=== PATIENT | male | born 1990 | race Caucasian/White ===

== ENCOUNTER 2016-09-11 20:22 | Emergency (ER) | payer OTHER ==
[~2016-09-11] VITALS: Ht 170.1 cm; Wt 54.4 kg
[~2016-09-11 20:22] MED LIST: MOTRIN800 MG PO; ROBAXIN750 MG PO
[2016-09-11 21:31] LABS: BASO % 0.5 % (0.0-1.0); EOS # 0.5 10*3/uL (0.0-0.4); EOS % 5.6 % (1.0-4.0); HEMATOCRIT 41.7 % (42.0-52.0); HEMOGLOBIN 14.2 g/dl (14.0-18.0); LYMPH # 2.8 10*3/uL (1.3-4.4); LYMPH % 31.2 % (27.0-41.0); MEAN CORPUSCULAR HGB 27.6 pg (27.0-31.0); MEAN CORPUSCULAR HGB CONC 34.1 g/dl (33.0-37.0); MEAN PLATELET VOLUME 11.2 fl (9.6-12.3); MONO # 0.5 10*3/uL (0.1-1.0); NEUT % 56.6 % (47.0-73.0); PLATELET COUNT AUTOMATED 200 10*3/uL (130-400); RED BLOOD COUNT 5.15 10*6/uL (4.50-5.90); RED CELL DISTRI WIDTH 12.2 % (0-14.5); WHITE BLOOD COUNT 8.9 10*3/uL (4.8-10.8)
[2016-09-11 21:47] LABS: ALBUMIN 4.2 gm/dl (3.1-4.5); ALKALINE PHOSPHATASE 69 U/L (45-117); BILIRUBIN, TOTAL 0.6 mg/dl (0.2-1.0); BUN 9 mg/dl (7-24); CARBON DIOXIDE 29 mmol/L (21-32); CHLORIDE 105 mmol/L (98-107); EST GLOM FILT AFRICAN AMERICAN > 60 ml/min; GLUCOSE 116 mg/dL (65-99); POTASSIUM 3.8 mmol/L (3.5-5.1); SGOT/AST 13 IU/L (3-35); SGPT/ALT 18 U/L (12-78); SODIUM 142 mmol/L (136-145); TOTAL PROTEIN 7.4 gm/dL (6.4-8.2)
[2016-09-11 23:00] LABS: BILIRUBIN NEGATIVE (NEGATIVE); BLOOD NEGATIVE (NEGATIVE); CLARITY CLEAR (CLEAR); COLOR YELLOW (YELLOW); GLUCOSE NEGATIVE (NEGATIVE); KETONE NEGATIVE (NEGATIVE); LEUKO ESTERASE NEGATIVE (NEGATIVE); NITRITE NEGATIVE (NEGATIVE); PROTEIN NEGATIVE (NEGATIVE); UROBILINOGEN 0.2 E.U./dl (0.2-1.0)
[2016-09-11 23:09] LABS: URINE AMPHETAMINES < 1000 (1000ng/ml); URINE BARBITURATES < 200 (200ng/ml); URINE COCAINE < 300 (300ng/ml); URINE REFLEX COMMENT NO (NO)
== END 2016-09-12 00:17 | disposition home or self-care (01) ==
LOC: ED 20:22
PROVIDERS: Nurse Practitioner Family
DX: F11.10 Opioid abuse, uncomplicated (principal); F19.230 Other psychoactive substance dependence with withdrawal, uncomplicated; R10.84 Generalized abdominal pain; F17.200 Nicotine dependence, unspecified, uncomplicated; F14.10 Cocaine abuse, uncomplicated; G25.81 Restless legs syndrome; Z98.890 Other specified postprocedural states

== ENCOUNTER 2017-04-27 16:52 | Inpatient (IN) | payer OTHER ==
[~2017-04-27] VITALS: Ht 172.7 cm; Wt 62.2 kg
[2017-04-27 17:29] VITALS: BP 118/82
[2017-04-27 17:49] LABS: BASO % 0.2 % (0.0-1.0); EOS % 0.3 % (1.0-4.0); HEMATOCRIT 46.1 % (42.0-52.0); HEMOGLOBIN 15.7 g/dl (14.0-18.0); LYMPH # 1.4 10*3/uL (1.3-4.4); LYMPH % 13.5 % (27.0-41.0); MEAN CELL VOLUME 81.2 fl (80.0-94.0); MEAN CORPUSCULAR HGB 27.6 pg (27.0-31.0); MEAN CORPUSCULAR HGB CONC 34.1 g/dl (33.0-37.0); MEAN PLATELET VOLUME 11.1 fl (9.6-12.3); MONO # 0.3 10*3/uL (0.1-1.0); MONO % 3.4 % (3.0-9.0); NEUT # 8.2 10*3/uL (2.3-7.9); NEUT % 82.4 % (47.0-73.0); PLATELET COUNT AUTOMATED 250 10*3/uL (130-400); RED BLOOD COUNT 5.68 10*6/uL (4.50-5.90); RED CELL DISTRI WIDTH 12.9 % (0-14.5)
[2017-04-27 17:57] LABS: ACT PARTIAL THROMBO TIME 23.3 SECONDS (20.8-31.5); INTERNATIONAL NORM RATIO 1.1 (2.0-3.5)
[2017-04-27 18:02] LABS: ALBUMIN 4.4 gm/dl (3.1-4.5); ALKALINE PHOSPHATASE 77 U/L (45-117); BUN 14 mg/dl (7-24); CHLORIDE 103 mmol/L (98-107); CREATININE 1.09 mg/dL (0.70-1.30); POTASSIUM 4.1 mmol/L (3.5-5.1); SGOT/AST 16 IU/L (3-35); SGPT/ALT 19 U/L (12-78); SODIUM 137 mmol/L (136-145); TOTAL PROTEIN 8.2 gm/dL (6.4-8.2)
[2017-04-27 18:03] LABS: ACETAMINOPHEN (TYLENOL) < 2.0 ug/ml (10-30); ETHYL ALCOHOL < 3.0 mg/dl (<3)
[2017-04-27 19:15] VITALS: BP 130/80
[2017-04-27 20:00] VITALS: BP 130/80
[2017-04-28] VITALS: BP 90/42
[2017-04-28 03:38] VITALS: BP 99/52
[2017-04-28 04:05] LABS: BILIRUBIN NEGATIVE (NEGATIVE); BLOOD NEGATIVE (NEGATIVE); CLARITY SL CLOUDY (CLEAR); COLOR YELLOW (YELLOW); GLUCOSE NEGATIVE (NEGATIVE); KETONE NEGATIVE (NEGATIVE); LEUKO ESTERASE NEGATIVE (NEGATIVE); NITRITE NEGATIVE (NEGATIVE); PH 6.5 (5.0-9.0); UROBILINOGEN 0.2 E.U./dl (0.2-1.0)
[2017-04-28 04:20] LABS: MUCOUS TRACE
[2017-04-28 04:29] LABS: URINE AMPHETAMINES < 1000 (1000ng/ml); URINE BARBITURATES < 200 (200ng/ml); URINE BENZODIAZEPINES < 200 (200ng/ml); URINE CANNABINOIDS (THC) < 50 (50ng/ml); URINE COCAINE < 300 (300ng/ml); URINE METHADONE < 300 (300ng/ml); URINE OPIATES > 300 (300ng/ml); URINE PHENCYCLIDINE < 25 (25ng/ml)
[2017-04-28 08:00] VITALS: BP 113/67
[2017-04-28 12:00] VITALS: BP 119/57
[2017-04-28 16:00] VITALS: BP 112/55
[2017-04-28 20:00] VITALS: BP 118/66
[2017-04-29] VITALS: BP 110/61
[2017-04-29 08:00] VITALS: BP 111/60
[2017-04-29 12:00] VITALS: BP 114/66
[2017-04-29 16:00] VITALS: BP 103/55
[2017-04-29 20:07] VITALS: BP 111/58
[2017-04-30] VITALS: BP 119/53
[2017-04-30 05:23] LABS: BASO % 0.5 % (0.0-1.0); EOS # 0.2 10*3/uL (0.0-0.4); EOS % 3.6 % (1.0-4.0); HEMATOCRIT 40.9 % (42.0-52.0); HEMOGLOBIN 13.6 g/dl (14.0-18.0); LYMPH # 2.4 10*3/uL (1.3-4.4); LYMPH % 42.7 % (27.0-41.0); MEAN CELL VOLUME 83.8 fl (80.0-94.0); MEAN CORPUSCULAR HGB 27.9 pg (27.0-31.0); MEAN CORPUSCULAR HGB CONC 33.3 g/dl (33.0-37.0); MEAN PLATELET VOLUME 11.2 fl (9.6-12.3); MONO # 0.9 10*3/uL (0.1-1.0); MONO % 16.3 % (3.0-9.0); NEUT % 36.4 % (47.0-73.0); PLATELET COUNT AUTOMATED 188 10*3/uL (130-400); RED BLOOD COUNT 4.88 10*6/uL (4.50-5.90); RED CELL DISTRI WIDTH 13.2 % (0-14.5); WHITE BLOOD COUNT 5.6 10*3/uL (4.8-10.8)
[2017-04-30 05:35] LABS: CREATININE 1.15 mg/dL (0.70-1.30)
[2017-04-30 08:00] VITALS: BP 124/76
[2017-04-30] MEDS ORDERED: ATARAX,VISTARIL50 MG PO (11:01)
[2017-04-30] MEDS ORDERED: ZOFRAN4 MG PO (11:01)
== END 2017-04-30 11:32 | disposition home or self-care (01) | DRG 897 ==
LOC: ED 16:52 → EDHOLD 17:52 → 4E 17:52
PROVIDERS: Internal Medicine; Nurse Practitioner Family
DX: F11.23 Opioid dependence with withdrawal (principal); F17.200 Nicotine dependence, unspecified, uncomplicated; R73.9 Hyperglycemia, unspecified; Z71.6 Tobacco abuse counseling

== ENCOUNTER 2017-08-26 22:24 | Emergency (ER) | payer OTHER ==
[~2017-08-26] VITALS: Ht 170.1 cm; Wt 54.4 kg
[~2017-08-26 22:24] MED LIST changes: +ATARAX,VISTARIL50 MG PO; +ZOFRAN4 MG PO
[2017-08-27 00:29] LABS: BASO % 0.4 % (0.0-1.0); EOS # 0.1 10*3/uL (0.0-0.4); EOS % 1.1 % (1.0-4.0); HEMOGLOBIN 14.1 g/dl (14.0-18.0); LYMPH # 3.6 10*3/uL (1.3-4.4); LYMPH % 31.3 % (27.0-41.0); MEAN CELL VOLUME 82.5 fl (80.0-94.0); MEAN CORPUSCULAR HGB 28.4 pg (27.0-31.0); MEAN CORPUSCULAR HGB CONC 34.4 g/dl (33.0-37.0); MEAN PLATELET VOLUME 11.4 fl (9.6-12.3); MONO # 0.7 10*3/uL (0.1-1.0); MONO % 6.2 % (3.0-9.0); NEUT # 6.9 10*3/uL (2.3-7.9); NEUT % 60.6 % (47.0-73.0); PLATELET COUNT AUTOMATED 206 10*3/uL (130-400); RED BLOOD COUNT 4.97 10*6/uL (4.50-5.90); RED CELL DISTRI WIDTH 12.2 % (0-14.5); WHITE BLOOD COUNT 11.4 10*3/uL (4.8-10.8)
[2017-08-27 00:49] LABS: ALBUMIN 4.3 gm/dl (3.1-4.5); ALKALINE PHOSPHATASE 56 U/L (45-117); BUN 16 mg/dl (7-24); CHLORIDE 104 mmol/L (98-107); CREATININE 0.95 mg/dL (0.70-1.30); POTASSIUM 3.4 mmol/L (3.5-5.1); SGOT/AST 13 IU/L (3-35); SGPT/ALT 20 U/L (12-78); SODIUM 138 mmol/L (136-145); TOTAL PROTEIN 7.6 gm/dL (6.4-8.2)
[2017-08-27 00:55] LABS: ACETAMINOPHEN (TYLENOL) 28.5 ug/ml (10-30)
== END 2017-08-27 10:10 | disposition home or self-care (01) ==
LOC: ED 22:24
PROVIDERS: Physician Assistant
DX: F43.20 Adjustment disorder, unspecified (principal); F17.200 Nicotine dependence, unspecified, uncomplicated; F41.9 Anxiety disorder, unspecified; F11.10 Opioid abuse, uncomplicated; R45.851 Suicidal ideations; Z98.890 Other specified postprocedural states

== ENCOUNTER 2017-09-05 15:49 | Emergency (ER) | payer OTHER ==
[~2017-09-05] VITALS: Ht 172.7 cm; Wt 54.4 kg
[2017-09-05] MEDS ORDERED: PENICILLIN VK500 MG PO (16:10)
[2017-09-05] MEDS ORDERED: Peridex 473 ML473 ML PO (16:10)
[2017-09-05] MEDS ORDERED: NAPROSYN500 MG PO (16:10)
== END 2017-09-05 16:25 | disposition home or self-care (01) ==
LOC: ED 15:49
DX: K02.9 Dental caries, unspecified (principal); R03.0 Elevated blood-pressure reading, without diagnosis of hypertension; F17.200 Nicotine dependence, unspecified, uncomplicated; F11.10 Opioid abuse, uncomplicated; Z98.890 Other specified postprocedural states

== ENCOUNTER 2018-03-10 02:25 | Emergency (ER) | payer OTHER ==
[~2018-03-10] VITALS: Ht 172.7 cm; Wt 56.7 kg
[~2018-03-10 02:25] MED LIST changes: +ANUSOL HC30 GM T; +NAPROSYN500 MG PO; +PENICILLIN VK500 MG PO; +Peridex 473 ML473 ML PO
[2018-03-10] MEDS ORDERED: NORCO 5-325 TA1 EACH PO (03:07)
[2018-03-10] MEDS ORDERED: Motrin,Rufen800 MG PO (03:07)
[2018-03-10] MEDS ORDERED: SILVADENE,SSD C50 GM T (03:26)
== END 2018-03-10 03:29 | disposition home or self-care (01) ==
LOC: ED 02:25
DX: T21.05XA Burn of unspecified degree of buttock, initial encounter (principal); T24.012A Burn of unspecified degree of left thigh, initial encounter; T31.0 Burns involving less than 10% of body surface; F17.200 Nicotine dependence, unspecified, uncomplicated; X08.8XXA Exposure to other specified smoke, fire and flames, initial encounter; Y93.89 Activity, other specified; Y92.89 Other specified places as the place of occurrence of the external cause; Y99.8 Other external cause status

== ENCOUNTER 2018-04-15 15:58 | Inpatient (IN) | payer OTHER ==
[2018-04-15 15:58] VITALS: BP 141/76
[~2018-04-15 15:58] MED LIST changes: +Motrin,Rufen800 MG PO; +NORCO 5-325 TA1 EACH PO; +SILVADENE,SSD C50 GM T
[2018-04-15 17:05] LABS: BILIRUBIN NEGATIVE (NEGATIVE); BLOOD NEGATIVE (NEGATIVE); CLARITY SL CLOUDY (CLEAR); COLOR YELLOW (YELLOW); GLUCOSE NEGATIVE (NEGATIVE); KETONE NEGATIVE (NEGATIVE); LEUKO ESTERASE NEGATIVE (NEGATIVE); NITRITE NEGATIVE (NEGATIVE); SPECIFIC GRAVITY 1.025 (1.005-1.030); UROBILINOGEN 0.2 E.U./dl (0.2-1.0)
[2018-04-15 17:05] LABS: BASO % 0.2 % (0.0-1.0); EOS # 0.2 10*3/uL (0.0-0.4); EOS % 2.4 % (1.0-4.0); HEMATOCRIT 42.6 % (42.0-52.0); HEMOGLOBIN 14.4 g/dl (14.0-18.0); LYMPH # 2.5 10*3/uL (1.3-4.4); LYMPH % 24.7 % (27.0-41.0); MEAN CELL VOLUME 83.7 fl (80.0-94.0); MEAN CORPUSCULAR HGB 28.3 pg (27.0-31.0); MEAN CORPUSCULAR HGB CONC 33.8 g/dl (33.0-37.0); MEAN PLATELET VOLUME 11.1 fl (9.6-12.3); MONO # 0.5 10*3/uL (0.1-1.0); MONO % 5.2 % (3.0-9.0); NEUT # 6.9 10*3/uL (2.3-7.9); NEUT % 67.2 % (47.0-73.0); PLATELET COUNT AUTOMATED 177 10*3/uL (130-400); RED BLOOD COUNT 5.09 10*6/uL (4.50-5.90); RED CELL DISTRI WIDTH 12.8 % (0-14.5); WHITE BLOOD COUNT 10.2 10*3/uL (4.8-10.8)
[2018-04-15 17:14] LABS: ACT PARTIAL THROMBO TIME 22.3 SECONDS (20.8-31.5)
[2018-04-15 17:15] LABS: URINE AMPHETAMINES < 1000 (1000ng/ml); URINE BARBITURATES < 200 (200ng/ml); URINE BENZODIAZEPINES < 200 (200ng/ml); URINE CANNABINOIDS (THC) < 50 (50ng/ml); URINE COCAINE < 300 (300ng/ml); URINE METHADONE < 300 (300ng/ml); URINE OPIATES > 300 (300ng/ml)
[2018-04-15 17:16] LABS: URINE PHENCYCLIDINE < 25 (25ng/ml)
[2018-04-15 17:24] LABS: MUCOUS 1+; WBC 0-2 wbc/hpf (0-5)
[2018-04-15 17:31] LABS: ALBUMIN 4.3 gm/dl (3.1-4.5); ALKALINE PHOSPHATASE 60 U/L (45-117); BUN 15 mg/dl (7-24); CHLORIDE 103 mmol/L (98-107); CREATININE 1.03 mg/dL (0.70-1.30); SGOT/AST 8 IU/L (3-35); SGPT/ALT 21 U/L (12-78); SODIUM 141 mmol/L (136-145); TOTAL PROTEIN 7.5 gm/dL (6.4-8.2)
[2018-04-15 17:32] VITALS: BP 138/80
[2018-04-15 17:32] LABS: ETHYL ALCOHOL < 3.0 mg/dl (<3)
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
[2018-04-15 18:00] VITALS: BP 123/62
--- NOTE | 2018-04-15 18:07 | NUR ---
Time: 1749 A 28 year old MALE admitted to under services of JORGE BURT DO, Pt. arrived via OTHER from ER. Chief complaint: OPIATE DEPENDENCE. KELLY BRASHER
[2018-04-15 20:00] VITALS: BP 102/50
--- NOTE | 2018-04-15 22:05 | NUR ---
PT REQUESTED AND RECIEVED PRN MEDICATIONS FOR C/O ANXIETY, RESTLESSNESS AND SWEATS. PRN ORDERS FOR REQUIP, ROBAXIN, AND ATIVAN GIVEN. WILL MONITOR EFFECTIVENESS OF MEDICATION.
--- NOTE | 2018-04-15 23:05 | NUR ---
PRN MEDICATIONS MILDLY EFFECTIVE PER PT. WILL CONTINUE TO MONITOR.
[2018-04-16] VITALS: BP 135/64
--- NOTE | 2018-04-16 02:38 | NUR ---
24 HR chart check completed.
--- NOTE | 2018-04-16 03:53 | NUR ---
PT IS ASLEEP IN BED AT THIS TIME WITH NO SIGNS OR SYMPTOMS OF PAIN OR DISTRESS. RESPIRATIONS ARE EASY AND UNLABORED AT THIS TIME. PADDED SIDE RAILS ARE INTACT. CALL LIGHT IS WITHIN REACH. WILL CONTINUE TO MONITOR PT
[2018-04-16 08:00] VITALS: BP 116/61
--- NOTE | 2018-04-16 08:05 | NUR ---
PATIENT DIAPHORETIC, CHILLING, RESTLESSS, ACHY AND C/O ANXIETY. MEDICATED WITH ROBAXIN,REQUIP, MOTRIN AND ATIVAN PER PRN ORDERS. WILL CONTINUE TO MONITOR.
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
--- NOTE | 2018-04-16 09:30 | NUR ---
PATIENT RESTING QUIETLY. MEDICATIONS EFFECTIVE. WILL CONTINUE TO MONITOR.
[2018-04-16 12:00] VITALS: BP 136/72
--- NOTE | 2018-04-16 12:40 | NUR ---
PATIENT WILL BE FOLLOWING UP WITH [facility] IN [place] ON April AT 3:30PM TO UPDATE HIS ASSESSMENT, THEN [facility] WILL SCHEDULE HIS VIVITROL SHOT APPOINTMENT. THE FACILITY STATED THAT THEIR DOCTOR WILL BE BACK FROM [place] ON THE April. PATIENT AGREES AND UNDERSTANDS HIS AFTERCARE PLAN. AIDAN HOROWITZ B.A. INTAKE COORDIANTOR
[2018-04-16 16:00] VITALS: BP 104/51
[2018-04-16 20:00] VITALS: BP 117/63
[2018-04-17] VITALS: BP 114/67
--- NOTE | 2018-04-17 01:41 | NUR ---
24 HR chart check completed.
--- NOTE | 2018-04-17 04:00 | NUR ---
PATIENT RESTING IN BED WITH EYES CLOSED. NO SIGNS OR SYMPTOMS OF DISTRESS NOTED. DENIES COMPLAINTS OF PAIN OR DISCOMFORT. SUBUTEX GIVEN ORDERED. WILL CONTINUE TO MONITOR. CALL LIGHT IN REACH.
[2018-04-17 10:18] VITALS: BP 111/64
--- NOTE | 2018-04-17 10:18 | NUR ---
PT MEDICATED WITH ATIVAN, BENTYL, AND REQUIP FOR COMPLAINTS OF ANXIETY, STOMACH CRAMPS, AND RESTLESS LEGS. WILL MONITOR FOR EFFECTIVENESS.
--- NOTE | 2018-04-17 11:45 | NUR ---
PER PATIENT, PRN MEDICATION HAS BEEN EFFECTIVE. NO FURTHER COMPLAINTS AT THIS TIME.
[2018-04-17 16:00] VITALS: BP 98/52
[2018-04-17 20:00] VITALS: BP 135/78
[2018-04-18] VITALS: BP 108/69
--- NOTE | 2018-04-18 00:53 | NUR ---
24 HR chart check completed.
--- NOTE | 2018-04-18 01:25 | NUR ---
PATIENT IN BED SLEEPING AT THIS TIME. NO SIGNS OR SYMPTOMS OF DISTRESS NOTED. AROUSES TO VERBAL STIMULI. RESPIRATIONS REGULAR AND NON-LABORED. DENIES COMPLAINTS OF PAIN OR DISCOMFORT. WILL CONTINUE TO MONITOR. CALL LIGHT IN REACH.
--- NOTE | 2018-04-18 07:00 | NUR ---
BEDSIDE REPORT OBTAINED FROM NIKO-DAVIS. PATIENT APPEARS TO BE ASLEEP, EYES CLOSED. NO S&S OF DISTRESS NOTED, RESP ARE ERND ON ROOM AIR. BED IS LOCKED IN LOWEST POSITION, CALL LIGHT LEFT WITHIN REACH.
[2018-04-18 07:05] LABS: BASO % 0.5 % (0.0-1.0); EOS # 0.3 10*3/uL (0.0-0.4); EOS % 3.5 % (1.0-4.0); HEMOGLOBIN 15.1 g/dl (14.0-18.0); LYMPH # 2.9 10*3/uL (1.3-4.4); LYMPH % 38.2 % (27.0-41.0); MEAN CORPUSCULAR HGB 28.2 pg (27.0-31.0); MEAN CORPUSCULAR HGB CONC 33.6 g/dl (33.0-37.0); MEAN PLATELET VOLUME 11.8 fl (9.6-12.3); MONO # 0.7 10*3/uL (0.1-1.0); MONO % 9.4 % (3.0-9.0); NEUT # 3.7 10*3/uL (2.3-7.9); NEUT % 48.1 % (47.0-73.0); PLATELET COUNT AUTOMATED 193 10*3/uL (130-400); RED BLOOD COUNT 5.36 10*6/uL (4.50-5.90); RED CELL DISTRI WIDTH 12.9 % (0-14.5); WHITE BLOOD COUNT 7.6 10*3/uL (4.8-10.8)
[2018-04-18 07:29] LABS: CREATININE 1.14 mg/dL (0.70-1.30)
[2018-04-18 12:00] VITALS: BP 112/53
--- NOTE | 2018-04-18 13:29 | NUR ---
Discharge instructions reviewed with patient. Patient receptive and verbalizes understanding. Follow-up care TO BE arranged BY PATIENT. Written instructions given to patient. TIMOTHY FERNANDEZ
== END 2018-04-18 13:29 | disposition home or self-care (01) | DRG 897 ==
LOC: ED 15:58 → 5E 16:50 → EDHOLD 16:50 → 5E 17:26
PROVIDERS: Emergency Medicine; ADMIT Internal Medicine
DX: F11.23 Opioid dependence with withdrawal (principal); R61 Generalized hyperhidrosis; M79.10 Myalgia, unspecified site; R68.83 Chills (without fever); R45.1 Restlessness and agitation; R73.9 Hyperglycemia, unspecified; E83.41 Hypermagnesemia; F43.20 Adjustment disorder, unspecified; Z71.6 Tobacco abuse counseling; F17.200 Nicotine dependence, unspecified, uncomplicated; Z72.89 Other problems related to lifestyle

== ENCOUNTER 2019-10-30 02:47 | Emergency (ER) | payer SELFPAY ==
[~2019-10-30] VITALS: Ht 170.1 cm; Wt 68.0 kg
[2019-10-30 03:43] LABS: BASO # 0.1 10*3/uL (0.0-0.1); BASO % 0.2 % (0.0-1.0); EOS # 0.1 10*3/uL (0.0-0.4); EOS % 0.4 % (1.0-4.0); HEMATOCRIT 46.9 % (42.0-52.0); LYMPH # 1.2 10*3/uL (1.3-4.4); LYMPH % 5.4 % (27.0-41.0); MEAN CELL VOLUME 83.6 fl (80.0-94.0); MEAN CORPUSCULAR HGB 28.2 pg (27.0-31.0); MEAN CORPUSCULAR HGB CONC 33.7 g/dl (33.0-37.0); MEAN PLATELET VOLUME 10.9 fl (9.6-12.3); MONO % 4.5 % (3.0-9.0); NEUT # 19.9 10*3/uL (2.3-7.9); NEUT % 88.6 % (47.0-73.0); PLATELET COUNT AUTOMATED 255 10*3/uL (130-400); RED BLOOD COUNT 5.61 10*6/uL (4.50-5.90); RED CELL DISTRI WIDTH 12.2 % (0-14.5); WHITE BLOOD COUNT 22.5 10*3/uL (4.8-10.8)
[2019-10-30 03:54] LABS: ACT PARTIAL THROMBO TIME 20.2 SECONDS (20.0-32.1)
[2019-10-30 04:01] LABS: ALKALINE PHOSPHATASE 60 U/L (45-117); BUN 18 mg/dl (7-24); CHLORIDE 105 mmol/L (98-107); CREATININE 1.44 mg/dL (0.70-1.30); POTASSIUM 3.6 mmol/L (3.5-5.1); SGOT/AST 24 IU/L (3-35); SGPT/ALT 30 U/L (12-78); SODIUM 139 mmol/L (136-145); TOTAL PROTEIN 7.5 gm/dL (6.4-8.2)
[2019-10-30 04:03] LABS: TROPONIN I 0.046 ng/ml (<0.045)
[2019-10-30] MEDS ORDERED: AUGMENTIN 875875 MG PO (06:08)
[2019-10-30] MEDS ORDERED: CLINDAMYCIN HC300 MG PO (06:08)
== END 2019-10-30 06:24 | disposition left against medical advice (07) ==
LOC: ED 02:47
PROVIDERS: Emergency Medicine Emergency Medical Services
DX: J69.0 Pneumonitis due to inhalation of food and vomit (principal); T65.91XA Toxic effect of unspecified substance, accidental (unintentional), initial encounter; R79.89 Other specified abnormal findings of blood chemistry; Y92.89 Other specified places as the place of occurrence of the external cause

== ENCOUNTER 2019-10-30 16:16 | Inpatient (IN) | payer OTHER ==
[~2019-10-30] VITALS: Ht 170.1 cm; Wt 71.4 kg
--- NOTE | 2019-10-30 00:30 | NUR ---
PATIENT STATED TYLENOL WAS EFFECTIVE AT THIS TIME
[~2019-10-30 16:16] MED LIST changes: +AUGMENTIN 875875 MG PO; +CLINDAMYCIN HC300 MG PO
[2019-10-30 16:59] VITALS: BP 118/57
[2019-10-30 19:22] LABS: BASO % 0.2 % (0.0-1.0); EOS # 0.1 10*3/uL (0.0-0.4); EOS % 0.8 % (1.0-4.0); HEMATOCRIT 45.6 % (42.0-52.0); LYMPH # 1.6 10*3/uL (1.3-4.4); LYMPH % 13.4 % (27.0-41.0); MEAN CORPUSCULAR HGB 28.4 pg (27.0-31.0); MEAN CORPUSCULAR HGB CONC 33.8 g/dl (33.0-37.0); MONO # 0.7 10*3/uL (0.1-1.0); MONO % 5.9 % (3.0-9.0); NEUT # 9.4 10*3/uL (2.3-7.9); NEUT % 79.4 % (47.0-73.0); PLATELET COUNT AUTOMATED 181 10*3/uL (130-400); RED BLOOD COUNT 5.43 10*6/uL (4.50-5.90); RED CELL DISTRI WIDTH 12.4 % (0-14.5); WHITE BLOOD COUNT 11.8 10*3/uL (4.8-10.8)
[2019-10-30 19:29] LABS: ALBUMIN 3.9 gm/dl (3.1-4.5); ALKALINE PHOSPHATASE 57 U/L (45-117); BUN 17 mg/dl (7-24); CHLORIDE 104 mmol/L (98-107); CREATININE 1.09 mg/dL (0.70-1.30); POTASSIUM 3.7 mmol/L (3.5-5.1); SGOT/AST 19 IU/L (3-35); SGPT/ALT 27 U/L (12-78); SODIUM 137 mmol/L (136-145); TOTAL PROTEIN 7.3 gm/dL (6.4-8.2)
[2019-10-30 19:32] LABS: TROPONIN I 0.057 ng/ml (<0.045)
[2019-10-30 23:30] VITALS: BP 132/78
--- NOTE | 2019-10-30 23:30 | NUR ---
A 29, admitted to , under the services of CORIN Story DO with a diagnosis of MULTIFOCAL PNEUMONIA DUE TO ASPIRATION. Chief complaint is SHORTNESS OF BREATH. Patient arrived via bed from ER. Monitor applied. Initial assessment completed. Vital signs taken and recorded. CORIN STORY DO notified of admission to the unit. Orders received. See assessment for past medical history, medications and allergies. Patient and/or family oriented to unit. [facility] visitation policy reviewed. Clothing/patient valuable form completed. CHIN VERGARA
--- NOTE | 2019-10-30 23:53 | NUR ---
PRN TYLENOL GIVEN FOR PT COMPLAINTS OF PAIN FROM COUGHING RATING IT 4/10 CALL ELISE SOLOMON, WILL MONITOR
--- NOTE | 2019-10-31 00:15 | NUR ---
NOTIFIED DR. WINSTON THAT PATIENT NEEDED TO BE PLACED ON 2L NC ON ADMISSION PATIENTS PULSE OX WAS 88-90%. PATIENT WAS SHORT OF BREATH AT REST. PATIENT STATED HE FELT BETTER WITH OXYGEN AND HIS PULSE OX WAS 94%. DR. WINSTON AWARE OF THIS WELL
--- NOTE | 2019-10-31 00:30 | NUR ---
PRN TYLENOL EFFECTIVE PER PT
--- NOTE | 2019-10-31 01:35 | NUR ---
NOTIFIED DR. WINSTON OF PATIENTS CRITICAL TROPONIN
[2019-10-31 05:17] LABS: BUN 14 mg/dl (7-24); CHLORIDE 104 mmol/L (98-107); CREATININE 1.05 mg/dL (0.70-1.30); POTASSIUM 3.9 mmol/L (3.5-5.1); SODIUM 136 mmol/L (136-145)
[2019-10-31 06:23] LABS: BASO % 0.4 % (0.0-1.0); EOS # 0.4 10*3/uL (0.0-0.4); EOS % 4.4 % (1.0-4.0); HEMATOCRIT 40.9 % (42.0-52.0); LYMPH # 3.1 10*3/uL (1.3-4.4); LYMPH % 37.1 % (27.0-41.0); MEAN CELL VOLUME 85.7 fl (80.0-94.0); MEAN CORPUSCULAR HGB 28.3 pg (27.0-31.0); MEAN PLATELET VOLUME 11.5 fl (9.6-12.3); MONO # 0.8 10*3/uL (0.1-1.0); MONO % 9.1 % (3.0-9.0); NEUT % 48.8 % (47.0-73.0); PLATELET COUNT AUTOMATED 169 10*3/uL (130-400); RED BLOOD COUNT 4.77 10*6/uL (4.50-5.90); RED CELL DISTRI WIDTH 12.7 % (0-14.5); WHITE BLOOD COUNT 8.3 10*3/uL (4.8-10.8)
[2019-10-31 08:00] VITALS: BP 111/72
--- NOTE | 2019-10-31 09:30 | NUR ---
PATIENT LYING IN BED, RESTING COMFORTABLY. DENIES ANY NEEDS AT THIS TIME. O2 IN PLACE @ 2L. LUNGS CLEAR/DIMINISHED T/O. CALL LIGHT IS WITHIN REACH.
--- NOTE | 2019-10-31 10:30 | NUR ---
Steel Tester in to talk to patient. Patient states lives at home with friend. There are no steps in the home. Physician: kristi at present Pharmacy: [facility]: none Patient's level of ADLs: INDEPENDENT Patient has working utilities: all working DME: none Follow-up physician's appointment after d/c: will be made by hospitalist nurse director upon discharge Does patient want to access PORTAL?: no Discharge plan discussed with patient,he lives at home with friend. he is independent in adls and ambulation, works, drives, he states he will return home when discharged and denies any home needs. JESSICA GRIFFITH
[2019-10-31 12:00] VITALS: BP 117/69
[2019-10-31 16:00] VITALS: BP 129/64
--- NOTE | 2019-10-31 17:26 | NUR ---
PATIENT DENIES ANY NEEDS AT THIS TIME. CALL LIGHT IS WITHIN REACH.
[2019-10-31 20:00] VITALS: BP 121/66
[2019-11-01] VITALS: BP 115/63
[2019-11-01 06:24] LABS: BASO % 0.3 % (0.0-1.0); EOS # 0.3 10*3/uL (0.0-0.4); EOS % 4.1 % (1.0-4.0); HEMATOCRIT 42.2 % (42.0-52.0); LYMPH # 1.9 10*3/uL (1.3-4.4); LYMPH % 25.3 % (27.0-41.0); MEAN CELL VOLUME 83.4 fl (80.0-94.0); MEAN CORPUSCULAR HGB 27.9 pg (27.0-31.0); MEAN CORPUSCULAR HGB CONC 33.4 g/dl (33.0-37.0); MEAN PLATELET VOLUME 11.2 fl (9.6-12.3); MONO # 0.6 10*3/uL (0.1-1.0); MONO % 8.4 % (3.0-9.0); NEUT # 4.6 10*3/uL (2.3-7.9); NEUT % 61.6 % (47.0-73.0); PLATELET COUNT AUTOMATED 169 10*3/uL (130-400); RED BLOOD COUNT 5.06 10*6/uL (4.50-5.90); WHITE BLOOD COUNT 7.5 10*3/uL (4.8-10.8)
[2019-11-01 08:00] VITALS: BP 107/47
--- NOTE | 2019-11-01 08:25 | NUR ---
PATIENT TAKEN OFF OF OXYGEN PER DR'S ORDER.
--- NOTE | 2019-11-01 08:34 | NUR ---
ASSESS FOR HOME OXYGEN ROOM AIR AT REST SPO2 97% HR 78 ROOM AIR WITH AMBULATION SPO2 93-95% HR 86-92 ROOM AIR RECOVERY SPO2 96% HR 78 PT. DOES NOT REQUIRE SUPPLEMENTAL O2 AT REST OR WITH EXERTION. RN NOTIFIED.
--- NOTE | 2019-11-01 08:45 | NUR ---
PT AWAKE, ALERT, ORIENTED X3. PT STATES THAT HE FEELS A LOT BETTER TODAY. LUNGS SOUND CLEAR. STILL ON 2L AT THIS TIME NASAL CANNULA. ABD SOFT & NONTENDER, DENIES ANY PAIN. NO EDEMA NOTED. CALL LIGHT IS WITHIN REACH.
--- NOTE | 2019-11-01 09:00 | NUR ---
case management visits with patient, he will return home when discharged and denies any home needs, case management will follow
[2019-11-01] MEDS ORDERED: OMNICEF300 MG PO (10:46)
[2019-11-01] MEDS ORDERED: AVPAK AZITHROM250 M1 PO (10:46)
--- NOTE | 2019-11-01 11:50 | NUR ---
Discharge instructions reviewed with patient/family. Patient receptive and verbalizes understanding. Follow-up care arranged. Written instructions given to patient/family. HEPLOCK DISCONTINUED. PATIENT AMBULATORY OFF FLOOR AND PICKED UP BY GIRLFRIEND. AWARE OF ANTIBIOTICS TO HEARING DOG TRAINER @ PHARMACY. DREW LOPEZ
== END 2019-11-01 11:56 | disposition home or self-care (01) | DRG 177 ==
LOC: ED 16:16 → 4E 22:09 → EDHOLD 22:09 → 4E 22:38
PROVIDERS: Internal Medicine; Physician Assistant; ADMIT Family Medicine
DX: J69.0 Pneumonitis due to inhalation of food and vomit (principal); J96.01 Acute respiratory failure with hypoxia; D64.9 Anemia, unspecified; F11.10 Opioid abuse, uncomplicated; R79.89 Other specified abnormal findings of blood chemistry; Z87.891 Personal history of nicotine dependence; T50.901D Poisoning by unspecified drugs, medicaments and biological substances, accidental (unintentional), subsequent encounter

== ENCOUNTER 2019-11-24 17:14 | Emergency (ER) | payer OTHER ==
[~2019-11-24] VITALS: Ht 172.7 cm; Wt 68.0 kg
[~2019-11-24 17:14] MED LIST changes: +AVPAK AZITHROM250 M1 PO; +OMNICEF300 MG PO
[2019-11-24 17:43] LABS: BASO % 0.5 % (0.0-1.0); EOS # 0.2 10*3/uL (0.0-0.4); HEMATOCRIT 44.5 % (42.0-52.0); LYMPH # 2.6 10*3/uL (1.3-4.4); LYMPH % 40.8 % (27.0-41.0); MEAN CELL VOLUME 82.4 fl (80.0-94.0); MEAN CORPUSCULAR HGB 27.8 pg (27.0-31.0); MEAN CORPUSCULAR HGB CONC 33.7 g/dl (33.0-37.0); MEAN PLATELET VOLUME 11.2 fl (9.6-12.3); MONO # 0.5 10*3/uL (0.1-1.0); MONO % 8.4 % (3.0-9.0); NEUT % 47.1 % (47.0-73.0); PLATELET COUNT AUTOMATED 196 10*3/uL (130-400); RED CELL DISTRI WIDTH 12.2 % (0-14.5); WHITE BLOOD COUNT 6.3 10*3/uL (4.8-10.8)
[2019-11-24 17:54] LABS: ACT PARTIAL THROMBO TIME 21.9 SECONDS (20.0-32.1)
[2019-11-24 18:00] LABS: ALBUMIN 4.2 gm/dl (3.1-4.5); ALKALINE PHOSPHATASE 58 U/L (45-117); BUN 17 mg/dl (7-24); CHLORIDE 106 mmol/L (98-107); CPK 212 U/L (39-308); CREATININE 1.17 mg/dL (0.70-1.30); SGOT/AST 16 IU/L (3-35); SGPT/ALT 28 U/L (12-78); SODIUM 139 mmol/L (136-145); TOTAL PROTEIN 7.5 gm/dL (6.4-8.2)
[2019-11-24 18:04] LABS: TROPONIN I < 0.015 ng/ml (<0.045)
[2019-11-24 19:32] LABS: BILIRUBIN NEGATIVE (NEGATIVE); BLOOD NEGATIVE (NEGATIVE); CLARITY CLEAR (CLEAR); COLOR YELLOW (YELLOW); GLUCOSE NEGATIVE (NEGATIVE); KETONE NEGATIVE (NEGATIVE); LEUKO ESTERASE NEGATIVE (NEGATIVE); NITRITE NEGATIVE (NEGATIVE); SPECIFIC GRAVITY 1.015 (1.005-1.030); UROBILINOGEN 0.2 E.U./dl (0.2-1.0)
[2019-11-24 19:33] LABS: BACTERIA 1+; MUCOUS 1+; URINE AMPHETAMINES < 1000 (1000ng/ml); URINE BARBITURATES < 200 (200ng/ml); URINE BENZODIAZEPINES < 200 (200ng/ml); URINE CANNABINOIDS (THC) < 50 (50ng/ml); URINE COCAINE < 300 (300ng/ml); URINE METHADONE < 300 (300ng/ml); URINE OPIATES < 300 (300ng/ml); WBC 0-2 wbc/hpf (0-5)
[2019-11-24 19:45] LABS: URINE PHENCYCLIDINE < 25 (25ng/ml)
== END 2019-11-24 19:41 | disposition home or self-care (01) ==
LOC: ED 17:14
PROVIDERS: Emergency Medicine
DX: T40.1X1A Poisoning by heroin, accidental (unintentional), initial encounter (principal); R79.1 Abnormal coagulation profile; Z87.891 Personal history of nicotine dependence; Y92.89 Other specified places as the place of occurrence of the external cause

== ENCOUNTER 2019-12-22 21:13 | Emergency (ER) | payer OTHER ==
[~2019-12-22] VITALS: Ht 170.1 cm; Wt 72.1 kg
== END 2019-12-22 22:11 | disposition left against medical advice (07) ==
LOC: ED 21:13
DX: R40.0 Somnolence (principal)

== ENCOUNTER 2020-01-09 19:54 | Emergency (ER) | payer OTHER ==
[~2020-01-09] VITALS: Ht 175.2 cm; Wt 68.0 kg
== END 2020-01-09 20:04 | disposition left against medical advice (07) ==
LOC: ED 19:54
DX: T65.91XA Toxic effect of unspecified substance, accidental (unintentional), initial encounter (principal); F17.200 Nicotine dependence, unspecified, uncomplicated; Y92.89 Other specified places as the place of occurrence of the external cause

== ENCOUNTER 2020-02-01 09:17 | Inpatient (IN) | payer OTHER ==
[2020-02-01] VITALS (10 sets, daily range): BP systolic 94–116; BP diastolic 37–79
[~2020-02-01] VITALS: Ht 175 cm; Wt 64.0 kg
--- NOTE | 2020-02-01 09:56 | NUR ---
ADMINISTERED ZOFRAN IV D/T CONTINUES EMESIS. PT DOES HAVE SOME NOTED BRIGHT RED BLOOD TO SPITTLE AND FROM NARES.
[2020-02-01 09:58] LABS: HEMATOCRIT 56.2 % (42.0-52.0); MEAN CELL VOLUME 87.5 fl (80.0-94.0); MEAN CORPUSCULAR HGB 27.7 pg (27.0-31.0); MEAN CORPUSCULAR HGB CONC 31.7 g/dl (33.0-37.0); MEAN PLATELET VOLUME 11.1 fl (9.6-12.3); PLATELET COUNT AUTOMATED 363 10*3/uL (130-400); RED BLOOD COUNT 6.42 10*6/uL (4.50-5.90); RED CELL DISTRI WIDTH 13.2 % (0-14.5); WHITE BLOOD COUNT 33.4 10*3/uL (4.8-10.8)
[2020-02-01 10:07] LABS: ACT PARTIAL THROMBO TIME 22.8 SECONDS (20.0-32.1); INTERNATIONAL NORM RATIO 1.1 (2.0-3.5)
[2020-02-01 10:13] LABS: ALBUMIN 3.9 gm/dl (3.1-4.5); ALKALINE PHOSPHATASE 85 U/L (45-117); BUN 15 mg/dl (7-24); CHLORIDE 102 mmol/L (98-107); CREATININE 1.85 mg/dL (0.70-1.30); LIPASE 69 U/L (73-393); POTASSIUM 3.5 mmol/L (3.5-5.1); SGOT/AST 21 IU/L (3-35); SGPT/ALT 28 U/L (12-78); SODIUM 137 mmol/L (136-145); TOTAL PROTEIN 7.5 gm/dL (6.4-8.2); TROPONIN I 0.044 ng/ml (<0.045)
--- NOTE | 2020-02-01 10:14 | NUR ---
PT BECOMING MORE ALERT, HAVING FREQUENT COUGHING SPELLS WITH BRIGHT RED BLOOD NOTED. PLACED ONTO NON REBREATHER AT THSI TIME D/T DECREASED POX LEVEL IN THE 80'S.
[2020-02-01 10:15] LABS: TOTAL CELLS COUNTED 100 #CELLS
[2020-02-01 10:16] LABS: PLATELET SUFFICIENCY NORMAL (NORMAL)
--- NOTE | 2020-02-01 10:17 | NUR ---
SPOKE WITH CRISTINO ZARAGOZA VIA TELEPHONE WITH PT ROSSANA SINHA.
[2020-02-01 10:21] LABS: ACETAMINOPHEN (TYLENOL) < 5.0 ug/ml (10-30); ETHYL ALCOHOL < 3.0 mg/dl (<3)
[2020-02-01 10:36] LABS: ABG BASE EXCESS -4.2 mmol/L (-2.0-2.0); ARTERIAL BLOOD GAS PH 7.343 (7.35-7.45)
--- NOTE | 2020-02-01 11:07 | NUR ---
SLEEPING, SEMI FOWLERS. RESPS EASY.
--- NOTE | 2020-02-01 12:05 | NUR ---
COUGHING JAG WTIH HEMOPTYSIS NOTED
--- NOTE | 2020-02-01 12:14 | NUR ---
A 29, admitted to ICCU, under the services of JORGE Burt DO with a diagnosis of OVERDOSE, SEPSIS. Chief complaint is FOUND UNRESPONSIVE BY GIRLFRIEND AND GIVEN NARCA. MULTIPLE EMESIS IN ER. Patient arrived via stretcher from ER. Monitor applied. Initial assessment completed. Vital signs taken and recorded. JORGE BURT DO notified of admission to the unit. Orders received. See assessment for past medical history, medications and allergies. Patient and/or family oriented to unit. [facility] visitation policy reviewed. IV TO RT HAND ON ARRIVAL IRLANDA TADEO
--- NOTE | 2020-02-01 12:53 | NUR ---
Dr. Borja was notified of consult.
--- NOTE | 2020-02-01 13:00 | NUR ---
Dr. Borja called iin after viewing CXR, stated that pt. needed intubation and transfer out. DR. Ulloa here and aware. Contact was made to [facility]. 1400 Intubation Was successful per Mikki CONTROL INSPECTOR with # 8 ETT. Pt. extremely restless post intubation w/ copious amts blood via ETT. Sedation was eventually achieved and central line was placed to RIJ/ CXR complete and awaiting final reading for successful placement.
[2020-02-01 14:22] LABS: URINE AMPHETAMINES < 1000 (1000ng/ml); URINE BARBITURATES < 200 (200ng/ml); URINE BENZODIAZEPINES < 200 (200ng/ml); URINE CANNABINOIDS (THC) < 50 (50ng/ml); URINE COCAINE > 300 (300ng/ml); URINE METHADONE < 300 (300ng/ml)
--- NOTE | 2020-02-01 14:22 | NUR ---
PATIENT REMAINS AGGITATED AND RESISTING SEDATION..VERSED GIVEN AND DIPRIVAN [id number] TO 50MCG
[2020-02-01 14:27] LABS: URINE OPIATES > 300 (300ng/ml)
[2020-02-01 14:30] LABS: URINE PHENCYCLIDINE < 25 (25ng/ml)
[2020-02-01 14:45] LABS: BILIRUBIN Negative (Negative); BLOOD Negative (Negative); CLARITY Cloudy (Clear); COLOR Yellow (Yellow); GLUCOSE Negative (Negative); KETONE 1+ (Negative); LEUKO ESTERASE Negative (Negative); NITRITE Negative (Negative); PH 5.5 (4.5-8.0); UROBILINOGEN 0.2 E.U./dl (0.0-1.0)
--- NOTE | 2020-02-01 14:54 | NUR ---
GUERLINE, VERSED GIVEN FOR INCREASED AGGITATION
[2020-02-01 15:13] LABS: BACTERIA 1+; MUCOUS 1+
--- NOTE | 2020-02-01 16:09 | NUR ---
[facility] called w/ accepting physician Dr. Cleaning. Will call w/ bed assignment when available.
--- NOTE | 2020-02-01 16:30 | NUR ---
Family was updated on pt. and in to visit. took all belongings home. 1700 Mikki BEASLEY here and assisted Placement of A-Line to LR per Dr. Ulloa.
[2020-02-01 17:20] LABS: ABG BASE EXCESS -3.6 mmol/L (-2.0-2.0); ARTERIAL BLOOD GAS PH 7.362 (7.35-7.45)
--- NOTE | 2020-02-01 18:21 | NUR ---
Bed assignment recieved. Call recieved josephine Brito RN. Report was given 1828 [facility] crew here report given . Family was called and notified of transport. room assignment an # [phone].
--- NOTE | 2020-02-01 18:35 | NUR ---
Departed to [facility] via [facility]. .
== END 2020-02-01 18:35 | disposition short-term general hospital (02) | DRG 917 ==
LOC: ED 09:17 → ICCU 11:22 → EDHOLD 11:22 → ICCU 11:45
PROVIDERS: Emergency Medicine; Internal Medicine Critical Care Medicine; Physician Assistant; Student in an Organized Health Care Education/Training Program; ADMIT Internal Medicine; ATTEND Internal Medicine
PROC: 5A1935Z Respiratory Ventilation, Less than 24 Consecutive Hours (ICD-10-PCS; principal; 2020-02-01)
PROC: B548ZZA Ultrasonography of Superior Vena Cava, Guidance (ICD-10-PCS; principal; 2020-02-01)
PROC: 02H633Z Insertion of Infusion Device into Right Atrium, Percutaneous Approach (ICD-10-PCS; principal; 2020-02-01)
PROC: 03HY33Z Insertion of Infusion Device into Upper Artery, Percutaneous Approach (ICD-10-PCS; principal; 2020-02-01)
PROC: 0BH17EZ Insertion of Endotracheal Airway into Trachea, Via Natural or Artificial Opening (ICD-10-PCS; principal; 2020-02-01)
DX: T40.1X1A Poisoning by heroin, accidental (unintentional), initial encounter (principal); A41.9 Sepsis, unspecified organism; J69.0 Pneumonitis due to inhalation of food and vomit; J96.01 Acute respiratory failure with hypoxia; N17.0 Acute kidney failure with tubular necrosis; R65.20 Severe sepsis without septic shock; R04.2 Hemoptysis; N28.9 Disorder of kidney and ureter, unspecified; R73.9 Hyperglycemia, unspecified; E78.2 Mixed hyperlipidemia; E83.41 Hypermagnesemia; F43.20 Adjustment disorder, unspecified; Y92.89 Other specified places as the place of occurrence of the external cause; Z87.891 Personal history of nicotine dependence

== ENCOUNTER 2022-05-01 09:41 | Emergency (ER) | payer OTHER ==
[~2022-05-01] VITALS: Ht 170.1 cm; Wt 72.6 kg
[2022-05-01] MEDS ORDERED: BUPRENORPHINE-1 EAC2 SL (09:53)
[2022-05-01] MEDS ORDERED: NAPROSYN500 MG PO (14:58)
== END 2022-05-01 15:10 | disposition home or self-care (01) ==
LOC: ED 09:41
DX: S99.912A Unspecified injury of left ankle, initial encounter (principal); Z79.899 Other long term (current) drug therapy; Z87.891 Personal history of nicotine dependence; W13.8XXA Fall from, out of or through other building or structure, initial encounter; Y93.89 Activity, other specified; Y92.89 Other specified places as the place of occurrence of the external cause; Y99.8 Other external cause status